=== PATIENT | female | born 1960 | race American Indian/Alaskan Native ===

== ENCOUNTER 2021-12-18 10:21 | Outpatient (CLI) | payer OTHER ==
--- NOTE | 2021-12-18 12:05 | XRay Report ---
Hand bilateral 4 views INDICATION: Bilateral hand pain IMPRESSION: Mild degenerative arthrosis involving the thumb carpometacarpal joints bilaterally, sligh tly worse in the right hand. No fracture or subluxation is identified. Signer Name: Jonh Baeza MD Signed: 12/18/2021 12:01 PM Workstation Name: [id number]
--- NOTE | 2021-12-18 12:06 | XRay Report ---
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 Signer Name: Jonh Baeza MD Signed: 12/18/2021 12:01 PM Workstation Name: [id number]
== END 2021-12-18 10:22 | disposition home or self-care (01) ==
LOC: XRAY 10:21
PROVIDERS: ATTEND Internal Medicine
DX: M17.0 Bilateral primary osteoarthritis of knee (principal); M19.042 Primary osteoarthritis, left hand; M19.041 Primary osteoarthritis, right hand